=== PATIENT | female | born 1980 | race Two or more races ===

== ENCOUNTER 2023-02-21 10:34 | Outpatient (CLI) | payer OTHER | END 2023-02-21 10:41 | disposition home or self-care (01) | LOC: SONOGRAMA 10:34 | PROVIDERS: ATTEND Pathology Anatomic Pathology & Clinical Pathology | DX: D34 Benign neoplasm of thyroid gland (principal); E07.9 Disorder of thyroid, unspecified; E04.1 Nontoxic single thyroid nodule; E04.2 Nontoxic multinodular goiter ==